=== PATIENT | female | born 1955 | race Caucasian/White ===

== ENCOUNTER 2018-03-23 20:57 | Emergency (ER) | payer BC ==
[2018-03-23 21:03] VITALS: BP 184/102; PULSE 95; RESP 20; TEMP 98.5; O2SAT 95
[2018-03-23] MEDS ORDERED: NEXI40CA PO (21:27)
--- NOTE | 2018-03-23 21:27 | PD ---
HPI Chief Complaint: ENT Complaint Time Seen by Provider: 21:08 Travel History International Travel<30 days: No Contact w/Intl Traveler<30days: No Traveled to known affect area: No History of Present Illness HPI The patient is a 62-year-old female who presents to the emergency department with occasional difficulty swallowing. The patient has a history of gastroesophageal reflux disease with previous stricture and subsequent dilatation. The patient last had an endoscopy performed in 2016 in [place], [place]. The patient states over the last several weeks she has had a mild discomfort in the back of her throat, was eating chicken several days ago when she felt like the chicken got stuck in her throat. Patient states that pain and irritation did disappear, and she has been able to drink Ensure drinks without any difficulty. However, she occasionally notes some burning in the substernal area related to reflux, states she stopped taking her proton pump inhibitor several weeks ago because she was worried about possible pancreatic cancer. The patient also has a history of hypothyroidism is worried about enlarged thyroid. The patient saw her toter, Dr. Polo, who apparently did an outpatient ultrasound which was negative for goiter. The patient also had a CT of her abdomen and pelvis which was negative for pancreatic cancer. The patient states she has no difficulty swallowing currently, but was afraid there is some inflammation in the back of her throat. Upon arrival she is asymptomatic. PFSH Past Medical History Narrative Medical GERD, hypothyroidism, esophageal stricture Past Surgical History Narrative Surgical EGD with previous dilatation of stricture Social History Tobacco Use: No (Quit smoking in the 70s) Allergies-Medications (Allergen,Severity, Reaction): Coded Allergies: No Known Allergies (Unverified , 03/23/18) Review of Systems Except as stated in HPI: all other systems reviewed are Neg General / Constitutional: No: Fever HENT: No: Neck Pain Cardiovascular: No: Chest Pain or Discomfort Respiratory: No: Shortness of Breath Gastrointestinal: Positive: Indigestion, Dysphagia, No: Nausea, Vomiting Physical Exam Narrative GENERAL: Awake, alert, pleasant 62-year-old female who appears her stated age and is in no acute respiratory distress. The patient is able to talk without any visible stridor. SKIN: Focused skin assessment warm/dry. HEAD: Atraumatic. Normocephalic. EYES: Pupils equal and round. No scleral icterus. No injection or drainage. ENT: No nasal bleeding or discharge. Mucous membranes pink and moist. No edema noted of the uvula, tongue, or lips. NECK: Trachea midline. No JVD. No enlargement of the thyroid noted. CARDIOVASCULAR: Regular rate and rhythm. No murmur appreciated. RESPIRATORY: No accessory muscle use. Clear to auscultation. Breath sounds equal bilaterally. MUSCULOSKELETAL: No obvious deformities. No clubbing. No cyanosis. No edema. NEUROLOGICAL: Awake and alert. No obvious cranial nerve deficits. Motor grossly within normal limits. Normal speech. PSYCHIATRIC: Appropriate mood and affect; insight and judgment normal. Data Data Last Documented VS Vital Signs Date Time Temp Pulse Resp B/P (MAP) Pulse Ox O2 Delivery O2 Flow Rate FiO2 03/23/18 21:03 98.5 95 20 184/102 (129) 95 Orders Orders Ed Discharge Order (03/23/18 21:21) [facility] Medical Decision Making Medical Screen Exam Complete: Yes Emergency Medical Condition: Yes Medical Record Reviewed: Yes Differential Diagnosis Differential diagnosis includes GERD, esophageal stricture, dysphagia, esophagitis, esophageal motility disorder, achalasia, Schatzki's ring. Narrative Course The patient's physical examination is unremarkable. She is able to talk without any evidence of stridor or dysphonia. The patient will be placed back on a proton pump inhibitor, she is advised to follow-up with her primary physician, Dr. Wick, for referral to GI she may benefit from outpatient endoscopy. The patient is stable for outpatient follow-up. Diagnosis Primary Impression: GERD (gastroesophageal reflux disease) Qualified Codes: K21.9 - Gastro-esophageal reflux disease without esophagitis Additional Impression: Dysphagia Qualified Codes: R13.10 - Dysphagia, unspecified Referrals: Derek Botello MD call for appointment Patient Instructions: General Instructions Additional Instructions: Nexium as directed. Continue Ensure drinks as needed. Avoid large meats. Follow-up with gastroenterology. Return if symptoms worsen or progress. Med/Other Pt SpecificInfo: Prescription(s) given Scripts Esomeprazole DR (Nexium) 40 Mg Capdr 40 MG PO DAILY for 30 Days, #30 CAP 0 Refills Prov: Og Sharp MD 03/23/18 Disposition: 01 DISCHARGE HOME Condition: Stable Og Sharp MD Mar 23, 2018 21:27
[2018-03-23] MEDS ORDERED: TIRO25CA PO (21:51)
[2018-03-23 21:58] VITALS: BP 139/89
== END 2018-03-23 22:00 | disposition home or self-care (01) ==
LOC: PHED 20:57
DX: K21.9 Gastro-esophageal reflux disease without esophagitis (principal); R13.10 Dysphagia, unspecified; E03.9 Hypothyroidism, unspecified; Z87.891 Personal history of nicotine dependence
CPT/HCPCS: 99283